=== PATIENT | female | born 1970 | race Caucasian/White ===

== ENCOUNTER 2018-05-19 06:14 | Day surgery (SDC) | payer BC ==
[2018-05-18 10:22] VITALS: BMI 35.0
[~2018-05-19 06:14] MED LIST: BUPIVACAINE HCL/PF (5 MG/ML) 30 ML VIAL IJ ONE
[2018-05-19] MEDS ORDERED: methylPREDNISolone NA SUCC 40 MG/1 ML VIAL ONE (06:48)
[2018-05-19] MEDS ORDERED: ALBUTEROL SO4 0.5 % INH SOLN 2.5 MG/0.5 ML VIAL.NEB. NEB ONE ×2 (06:56→08:36)
[2018-05-19] MEDS ORDERED: BUPIVACAINE HCL/PF 0.5% (5MG/ML) 10 ML VIAL ONE ×2 (07:53→09:57)
[2018-05-19] MEDS ORDERED: ceFAZolin SODIUM 1 GM VIAL IVPB ONE (08:30)
[2018-05-19] MEDS ORDERED: oxyCODONE HCL 5 MG TABLET PO PRN ×2 (09:53→10:39)
[2018-05-19] MEDS ORDERED: ONDANSETRON 4 MG/2 ML VIAL IVPUSH PRN ×2 (09:53→10:39)
[2018-05-19] MEDS ORDERED: LACTATED RINGERS SOLUTION 1,000 ML IV SCH (10:00)
--- NOTE | 2018-05-19 10:44 | OP ---
Operative Note - Note: Operative Date: 05/19/18 Pre-Operative Diagnosis: Morbid Obesity. Hypertension. Asthma Operation: Lap Gastric Band for Gastric Restriction. Diagnostic Laparoscopy Findings: 30 cc proximal gastric pouch created with APS Band Implants: Gastric Band plus sub-Q port Post-Operative Diagnosis: Same as Pre-op Surgeon: Orion Foote Vehicle Cost Engineer: Demetris Reveles Anesthesia: General Estimated Blood Loss (mls): 200 Operative Report Dictated: Yes
[2018-05-19] MEDS ORDERED: BUPIVACAINE HCL/PF (5 MG/ML) 30 ML VIAL IJ ONE (10:45)
[2018-05-19] MEDS ORDERED: SODIUM CHLORIDE 1,000 ML IV SCH (10:45)
--- NOTE | 2018-05-19 11:30 | OP ---
DATE OF OPERATION: 05/19/2018 PREOPERATIVE DIAGNOSIS: 1. Morbid obesity. 2. Hypertension. 3. Asthma. POSTOPERATIVE DIAGNOSIS: 1. Morbid obesity. 2. Hypertension. 3. Asthma. PROCEDURE PERFORMED: 1. Gastric band for gastric restriction. 2. Diagnostic laparoscopy. OPERATING SURGEON: Orion Foote MD STEEL RULE DIE MAKER: CHRIS Boothe, and Alcides Olivier MD, for an important portion of the procedure. OPERATIVE PROCEDURE: The patient was brought into the operating room, placed on the OR table in a supine position. All precautions were taken initially including padding for the back and the feet, and Venodyne boots were placed on both lower extremities. At that point, the abdomen was prepped and draped in the usual manner. A Veress needle was placed in the left upper quadrant, and a pneumoperitoneum was established. A No. 12 bladeless trocar was placed in the left upper quadrant. Through that trocar, a laparoscopic camera was placed. Under direct vision, a No. 15 bladeless trocar was placed in the right upper quadrant and a No. 5 bladeless trocar more laterally in the right upper quadrant. At that point, under direct vision, No. 12 bladeless trocar below the left costal margin was placed. At this point, a Sohail Liver Retractor was then placed in the epigastrium to retract the left lobe of the liver. The patient was then placed in a 20-degree reverse Trendelenburg position by Anesthesia. As the assistant case manager surgeon, CHRIS Saunders, retracted the omentum inferiorly, the operating surgeon pulled the stomach towards the patients right side. Electrocautery was then used to score the peritoneum over the left esophagogastric junction, including the left margo. It was during this procedure, that there was a blood vessel of the diaphragm that was struck and there was moderate bleeding that was noted. Multiple attempts at isolation and using the Endo Stitch to suture the bleeding vessel was unsuccessful. At this juncture, Dr. Olivier arrived in the room and provided further visualization, and then, with the LigaSure device, he was able to control the bleeding without any difficulty. At this point, attention was directed to the caudate lobe of the liver. The assistant case manager surgeon retracted the stomach towards the patients left side, and the operating surgeon opened up the avascular plane over the caudate lobe. The right margo of the diaphragm was noted, and the peritoneum anterior to it was scored with electrocautery. A laparoscopic instrument was then used to make a blunt tunnel from the right to the left margo until it was free in the left upper quadrant of the abdomen. The gastric band, which was an AP standard band was then prepped by the OR team, and placed through the No. 15 port site. The band tube was placed in the laparoscopic instrument which was pulled and withdrawn to the patients right side. The band tubing was placed into the band buckle, which was tied or synched down, and the band was rotated to the patients right side. A laparoscopic instrument easily fit between the band and the anterior stomach wall. The band was then sewn in place with the Endo Stitch, which was used to grab a bite of stomach so as above and below the band, and tied over the band. When it was completed, the band tubing was brought at the No. 15 port site, and under direct vision, all trocars were removed and pneumoperitoneum was released. The No. 15 trocar site was then extended laterally and dissection continued down to the right anterior rectus muscle fascia with electrocautery. Then, 2-0 Prolene sutures were placed on all 4 sides, and the port was then attached to right anterior rectus muscle fascia. All trocar sites that received 0.25% Marcaine were closed with 4-0 Biosyn in subcuticular fashion. Dressings were applied. The patient awoke from anesthesia and transferred out of the operating room to the recovery room in stable condition. ANESTHESIA: General. SURGEON: Orion Foote MD STEEL RULE DIE MAKER: CHRIS Boothe, and also for an important portion of the procedure was Dr. Alcides Olivier. EXPECTED BLOOD LOSS: 200 mL. Patient transferred to the recovery room in stable condition. Emmanuel [id number]
[2018-05-19 11:59] LABS: HEMATOCRIT 38.9 % (32.4-45.2); HEMOGLOBIN 13.2 GM/dL (10.7-15.3); MCH 31.1 pg (25.7-33.7); MEAN CELL VOLUME 91.5 fl (80-96); MEAN PLT VOLUME 9.8 fl (7.5-11.1); PLATELET COUNT 215 K/MM3 (134-434); RBC 4.25 M/mm3 (3.60-5.2); RDW 12.8 % (11.6-15.6)
[2018-05-19 12:25] LABS: ANION GAP 7 MMOL/L (8-16); BLOOD UREA NITROGEN 15 mg/dL (7-18); CALCIUM 8.4 mg/dL (8.5-10.1); CHLORIDE 109 mmol/L (98-107); CO2 24 mmol/L (21-32); CREATININE 0.8 mg/dL (0.55-1.3); GLUCOSE,RANDOM 126 mg/dL (74-106); POTASSIUM 4.2 mmol/L (3.5-5.1); SODIUM 140 mmol/L (136-145)
[2018-05-19 13:17] VITALS: TEMP 97.9
[2018-05-19] MEDS ORDERED: ACETAMINOPHEN 1000 MG/100 ML VIAL (NON FORMULARY) IVPB ONE ×2 (13:46→13:52)
--- NOTE | 2018-05-19 13:55 | SURG ---
Surgery Mold Stacker Note Mold Stacker: Demetris Reveles PA-C Date of Service: 05/19/18 Diagnosis: Morbid obesity due to excess calories Procedure: Laproscopic gastric band placement I was present for the entirety of the operative procedure. For further detail, please refer to operative report.
[2018-05-19] MEDS ORDERED: FAMOTIDINE 20 MG/50 ML IVPB 20 MG/50 ML MG IVPB ONE (14:08)
[2018-05-19] MEDS ORDERED: ONDANSETRON 4 MG/2 ML VIAL ONE (15:23)
[2018-05-19] MEDS ORDERED: ONDANSETRON 4 MG/2 ML VIAL IVPUSH ONE (15:40)
[2018-05-19 15:53] VITALS: PULSE 86
[2018-05-19 16:05] VITALS: BP 127/60
[2018-05-19] MEDS ORDERED: oxyCODONE HCL 5 MG TABLET ONE (16:25)
[2018-05-19] MEDS ORDERED: FAMOTIDINE 20 MG/50 ML IVPB 20 MG/50 ML MG IVPB SCH ×2 (16:45→22:00)
== END 2018-05-19 17:45 | disposition home or self-care (01) ==
LOC: JASU-SURG 06:14 → EDSTATUS 12:00 → JASU-SURG 17:45
PROVIDERS: ATTEND Surgery
PROC: 0DV64CZ Restriction of Stomach with Extraluminal Device, Percutaneous Endoscopic Approach (ICD-10-PCS; principal; 2018-05-19 08:00)
DX: E66.01 Morbid (severe) obesity due to excess calories (principal); I10 Essential (primary) hypertension; J45.909 Unspecified asthma, uncomplicated
CPT/HCPCS: 36415; 74241-TC-FY; 80048; 85027; 86850; 86900; 86901; 94010; 94640; 94760; J0131